=== PATIENT | female | born 1995 ===

== ENCOUNTER 2020-07-25 12:17 | Outpatient (CLI) | payer MEDICAID ==
--- NOTE | 2020-07-25 13:44 | Consultation ---
DATE OF CONSULTATION: 07/25/2020 CHIEF COMPLAINT: Abdominal pain. HISTORY OF PRESENT ILLNESS: This is a 25-year-old female, recently transferred from [place] to [place]. She had history of kidney stones but on June 06, she had severe right lower quadrant abdominal pain to the point she ended up going to [facility]. She had a CT of the abdomen and pelvis which showed evidence of thickening of the terminal ileum and the patient was referred to us for evaluation. The patient denies any nausea or vomiting. Denies any dysphagia or odynophagia. Denies any melena or hematochezia. Had some bloody stools in beginning of April but nothing since then. She also is complaining of some constipation. PAST MEDICAL HISTORY: History of kidney stone. PAST SURGICAL HISTORY: None. MEDICATIONS: Tylenol and tramadol. FAMILY HISTORY: She does not know, she is adopted. SOCIAL HISTORY: She occasionally drinks and smokes marijuana. ALLERGIES: No known drug allergies. REVIEW OF SYSTEMS: A 10-point review of systems was performed and pertinent positives in HPI. PHYSICAL EXAMINATION: GENERAL: This is a well-developed female, in no acute distress. HEENT: Normocephalic and atraumatic. Sclerae anicteric. NECK: Supple. No evidence of obvious lymphadenopathy. CARDIOVASCULAR: Regular rate and rhythm. Plus S1, S2. LUNGS: Clear to auscultation bilaterally. ABDOMEN: Positive bowel sounds. Soft and nontender. No rebound. No guarding. No peritoneal sign. EXTREMITIES: No cyanosis, no clubbing, no edema. ASSESSMENT AND PLAN: This is a 25-year-old female with right lower quadrant abdominal pain. CT evidence of the terminal ileitis, not responding to antibiotics, suspicious for possible Crohn's disease. Plan to perform colonoscopy. Negro Prather M.D. DR: Zack JOB#: [id number] CC:
== END 2020-07-25 14:17 | disposition home or self-care (01) ==
LOC: PAN 12:17
DX: R10.9 Unspecified abdominal pain (principal); Z87.442 Personal history of urinary calculi; K59.00 Constipation, unspecified; K52.9 Noninfective gastroenteritis and colitis, unspecified
CPT/HCPCS: 99203